=== PATIENT | female | born 1985 | race Hispanic/Latino ===

== ENCOUNTER 2018-11-08 07:07 | Emergency (ER) | payer OTHER ==
[~2018-11-08] VITALS: Ht 160 cm; Wt 103.0 kg
[2018-11-08] MEDS ORDERED: HYDROXYZINE HCL 50 MG/ML 2 ML VIAL IM ONE (08:00)
== END 2018-11-08 08:43 | disposition home or self-care (01) ==
LOC: EDH 07:07
DX: F41.1 Generalized anxiety disorder (principal); Z87.891 Personal history of nicotine dependence
CPT/HCPCS: 93005; 96372; 99284; J3410

== ENCOUNTER 2019-09-24 23:46 | Emergency (ER) | payer OTHER | END 2019-09-25 01:13 | disposition home or self-care (01) | LOC: EDH 23:46 | DX: L02.411 Cutaneous abscess of right axilla (principal); F41.9 Anxiety disorder, unspecified; Z98.51 Tubal ligation status | CPT/HCPCS: 96361; 96374; 96375 ==

== ENCOUNTER 2020-03-19 01:51 | Emergency (ER) | payer OTHER ==
[2020-03-19] MEDS ORDERED: HYDROXYZINE HCL 25 MG TABLET ONE (02:30)
== END 2020-03-19 02:42 | disposition home or self-care (01) ==
LOC: EDH 01:51
DX: F43.0 Acute stress reaction (principal); Z98.890 Other specified postprocedural states